=== PATIENT | male | born 1955 | race African-American/Black ===

== ENCOUNTER 2025-02-20 17:53 | Emergency (ER) | payer BC, OTHER ==
[~2025-02-20] VITALS: Ht 175.3 cm; Wt 82.0 kg
[~2025-02-20 17:53] MED LIST: LEVO-65 MT
[2025-02-20 17:55] VITALS: O2SAT 99
[2025-02-20] MEDS: SODIUM CHLORIDE 0.9% 1,000 ML IV ONE (19:13)
[2025-02-20 19:32] LABS: HEMATOCRIT. 29.8 % (42.0-52.0); HEMOGLOBIN. 8.7 g/dL (14.0-18.0); MEAN PLATELET VOLUME 7.3 fl (7.4-10.4); PLATELET 214 x1000/uL (130-400); RED BLOOD CELL COUNT 4.26 mill/uL (4.7-6.1); RED CELL DISTRIBUTION WIDTH 24.4 % (11.6-14.6)
[2025-02-20 19:46] LABS: CREATININE 1.0 mg/dL (0.6-1.3)
[2025-02-20 19:47] LABS: UREA NITROGEN BLOOD 9 mg/dL (9-23)
[2025-02-20 19:48] LABS: ASPARTATE AMINOTRANSFERASE 34 IU/L (<34); TROPONIN I HIGH SENSITIVITY 8 ng/L (3.0-53)
[2025-02-20 19:49] LABS: BILIRUBIN DIRECT < 0.1 mg/dL (<=3.0); BILIRUBIN TOTAL 0.3 mg/dL (0.1-1.0); PROTEIN TOTAL 5.9 g/dL (6.0-8.3)
[2025-02-20 20:23] LABS: LYMPHOCYTES % MANUAL 24.0 % (20.0-50.0); MONOCYTES % MANUAL 10.0 % (2.0-8.0); NEUTROPHILS % MANUAL 66.0 % (45.0-75.0); PLATELET ESTIMATE NORMAL
[2025-02-20] MEDS ORDERED: NALO4SPR BOTHNSTRLS (21:37)
[2025-02-21 01:09] VITALS: BP 132/63; PULSE 56; RESP 17; TEMP 37.2; O2SAT 99
== END 2025-02-21 01:10 | disposition home or self-care (01) ==
LOC: ER 17:53 → CMPBEDREQ 02-22 10:46
DX: T40.601A Poisoning by unspecified narcotics, accidental (unintentional), initial encounter (principal); J45.909 Unspecified asthma, uncomplicated; M19.90 Unspecified osteoarthritis, unspecified site; R06.02 Shortness of breath; Y92.89 Other specified places as the place of occurrence of the external cause
CPT/HCPCS: 80076; 80048; 80320; 85025; 84484; 36415; 71045; 70450; 93005; 96360; 99285; J7030; G0480